=== PATIENT | male | born 1995 | race Two or more races ===

== ENCOUNTER 2024-09-10 22:05 | Emergency (ER) | payer MEDICAID, OTHER ==
[~2024-09-10] VITALS: Ht 154.9 cm; Wt 74.0 kg
[2024-09-10 22:48] VITALS: BP 120/66; PULSE 98; RESP 18; TEMP 97.9; O2SAT 97
[2024-09-10] MEDS: IBUPROFEN 800 MG TAB PO ONE (23:06)
== END 2024-09-11 00:32 | disposition home or self-care (01) ==
LOC: ER 22:05
DX: S50.12XA Contusion of left forearm, initial encounter (principal); S40.022A Contusion of left upper arm, initial encounter; X58.XXXA Exposure to other specified factors, initial encounter; Y93.89 Activity, other specified; Y92.89 Other specified places as the place of occurrence of the external cause; Y99.8 Other external cause status
CPT/HCPCS: 73060; 73090